=== PATIENT | male | born 1955 | race Caucasian/White ===

== ENCOUNTER 2023-04-11 13:07 | Emergency (ER) | payer MEDICARE, BC ==
[2023-04-11 13:12] VITALS: TEMP 98.4
[2023-04-11 13:39] LABS: Appearance,Urine Clear (Clear); Bilirubin,Urine Negative (Negative); Blood,Urine Large (Negative); Color,Urine Light Red; Glucose,Urine (UA) Negative (Negative); Ketones,Urine Negative (Negative); Leukocyte Esterase,Urine Small (Negative); Mucus,Urine Rare /hpf; Nitrite,Urine Negative (Negative); Protein,Urine 1+ (Negative); RBC,Urine >182 /hpf (0-5); Specific Gravity,Urine 1.018 (1.001-1.035); Urobilinogen,Urine <2.0 mg/dL (<2.0); WBC,Urine 2 /hpf (0-5)
--- NOTE | 2023-04-11 14:15 | ED ---
Male Urogenital HPI - General Source: patient, RN notes reviewed Mode of arrival: ambulatory Limitations: no limitations - History of Present Illness MD Complaint: other (hematuria) <Chaya Montiel - Last Filed: 04/11/23 14:13> <Eric Miranda - Last Filed: 04/11/23 17:37> - General Chief complaint: Urogenital Stated complaint: Blood in Urine Time Seen by Provider: 04/11/23 14:10 - History of Present Illness Initial comments: This is a 68-year-old male who presents to the emergency department for blood in his urine. States that this just started today. Denies any burning with urination or associated pain. He is not taking any blood thinners. (Chaya Montiel) 68-year-old male with no prior history of kidney stones or urological issues he is not on any blood thinners other than a baby aspirin every day who presents with complaints of painless hematuria which started yesterday with clots later on. He states his leg up this morning by pain colored. He states he did has some lower bilateral flank pain while in the waiting room today with this since passed he denies any fevers chills nausea vomiting sweats any trauma no history and family are of himself with kidney stones or kidney tumors. (Eric Miranda) - Related Data Previous Rx's Medication Instructions Recorded Cephalexin [Keflex] 500 mg PO Q6HR 1 Days #20 cap 04/11/23 Allergies Allergy/AdvReac Type Severity Reaction Status Date / Time No Known Allergies Allergy Verified 04/11/23 13:12 Review of Systems ROS Other: All systems not noted in ROS Statement are negative. <Chaya Montiel - Last Filed: 04/11/23 14:13> ROS Other: All systems not noted in ROS Statement are negative. <Eric Miranda - Last Filed: 04/11/23 17:37> ROS Statement: Those systems with pertinent positive or pertinent negative responses have been documented in the HPI. Past Medical History Past Medical History: Hyperlipidemia, Hypertension History of Any Multi-Drug Resistant Organisms: None Reported Past Surgical History: No Surgical Hx Reported Past Psychological History: No Psychological Hx Reported Smoking Status: Former smoker Past Alcohol Use History: None Reported Past Drug Use History: None Reported <Chaya Montiel - Last Filed: 04/11/23 14:13> General Exam Limitations: no limitations <BeechristieChaya - Last Filed: 04/11/23 14:13> General appearance: alert, in no apparent distress Head exam: Present: atraumatic, normocephalic, normal inspection Eye exam: Present: normal appearance, PERRL, EOMI. Absent: scleral icterus, conjunctival injection, periorbital swelling ENT exam: Present: normal exam, mucous membranes moist Neck exam: Present: normal inspection, full ROM. Absent: tenderness, meningismus, lymphadenopathy Respiratory exam: Present: normal lung sounds bilaterally. Absent: respiratory distress, wheezes, rales, rhonchi, stridor, chest wall tenderness Cardiovascular Exam: Present: regular rate, normal rhythm, normal heart sounds. Absent: systolic murmur, diastolic murmur, rubs, gallop, clicks GI/Abdominal exam: Present: soft, normal bowel sounds. Absent: distended, tenderness, guarding, rebound, rigid, bruit, pulsatile mass Rectal exam: Present: deferred exam: Present: normal inspection, other (No tenderness no masses) Extremities exam: Present: normal inspection, full ROM, normal capillary refill. Absent: tenderness, pedal edema, joint swelling, calf tenderness Back exam: Present: normal inspection, full ROM. Absent: tenderness, CVA tenderness (R), CVA tenderness (L) Neurological exam: Present: alert, oriented X3, CN II-XII intact Psychiatric exam: Present: normal affect, normal mood Skin exam: Present: warm, dry, intact, normal color. Absent: rash <Eric Miranda - Last Filed: 04/11/23 17:37> - General Exam Comments Initial Comments: Visual Physical Exam Vital signs reviewed General: Well-appearing, nontoxic, no acute distress. Head: Normocephalic, atraumatic Eyes: PERRLA, EOMI ENT: Airway patent Chest: Nonlabored breathing Skin: No visual rash, normal skin tone Neuro: Alert and oriented 3 Musculoskeletal: No gross abnormalities (Chaya Montiel) This is a well-developed well-nourished awake alert oriented 4 male HEENT exam normocephalic atraumatic PERRL EOMI conjunctivae clear neck supple full range of motion no stridor JVD or bruits chest clear on auscultation no tenderness palpation cardiac normal sinus rhythm no palpable tenderness again over this area. Abdomen soft nontender no guarding rebound masses or bruits back negative to tenderness to palpation. Extremities bilaterally present and symmetric no focal sensorimotor or vascular deficits cranial nerves II through XII grossly intact patient does present with no evidence of any psychiatric abnormalities. (Eric Miranda) Course Vital Signs 04/11/23 04/11/23 13:10 17:10 Temperature 98.4 F Pulse Rate 72 Respiratory 16 19 Rate Blood Pressure 142/88 115/84 O2 Sat by Pulse 96 Oximetry Medical Decision Making <Chaya Montiel - Last Filed: 04/11/23 14:13> - Lab Data Result diagrams: 04/11/23 16:06 04/11/23 16:06 <Eric Miranda - Last Filed: 04/11/23 17:37> - Medical Decision Making I performed the QuickNote portion of this chart. Signed Chaya Montiel PA-C. (Chaya Montiel) - Lab Data Lab Results 04/11/23 04/11/23 04/11/23 Range/Units 13:17 16:06 16:06 WBC 7.4 (3.8-10.6) k/uL RBC 4.34 (4.30-5.90) m/uL Hgb 15.4 (13.0-17.5) gm/dL Hct 43.4 (39.0-53.0) % MCV 100.0 (80.0-100.0) fL MCH 35.4 H (25.0-35.0) pg MCHC 35.4 (31.0-37.0) g/dL RDW 13.3 (11.5-15.5) % Plt Count 234 (150-450) k/uL MPV 8.3 Neutrophils % 63 % Lymphocytes % 24 % Monocytes % 6 % Eosinophils % 5 % Basophils % 1 % Neutrophils # 4.6 (1.3-7.7) k/uL Lymphocytes # 1.8 (1.0-4.8) k/uL Monocytes # 0.5 (0-1.0) k/uL Eosinophils # 0.3 (0-0.7) k/uL Basophils # 0.1 (0-0.2) k/uL PT 10.1 (9.0-12.0) sec INR 0.9 (<1.2) APTT 22.7 (22.0-30.0) sec Sodium (137-145) mmol/L Potassium (3.5-5.1) mmol/L Chloride (98-107) mmol/L Carbon Dioxide (22-30) mmol/L Anion Gap mmol/L BUN (9-20) mg/dL Creatinine (0.66-1.25) mg/dL Est GFR (CKD-EPI)AfAm (>60 ml/min/1.73 sqM) Est GFR (CKD-EPI)NonAf (>60 ml/min/1.73 sqM) Glucose (74-99) mg/dL Calcium (8.4-10.2) mg/dL Total Bilirubin (0.2-1.3) mg/dL AST (17-59) U/L ALT (4-49) U/L Alkaline Phosphatase (38-126) U/L Total Protein (6.3-8.2) g/dL Albumin (3.5-5.0) g/dL Urine Color Light Red Urine Appearance Clear (Clear) Urine pH 6.0 (5.0-8.0) Ur Specific [place] 1.018 (1.001-1.035) Urine Protein 1+ H (Negative) Urine Glucose (UA) Negative (Negative) Urine Ketones Negative (Negative) Urine Blood Large H (Negative) Urine Nitrite Negative (Negative) Urine Bilirubin Negative (Negative) Urine Urobilinogen <2.0 (<2.0) mg/dL Ur Leukocyte Esterase Small H (Negative) Urine RBC >182 H (0-5) /hpf Urine WBC 2 (0-5) /hpf Urine Mucus Rare H (None) /hpf 04/11/23 Range/Units 16:06 WBC (3.8-10.6) k/uL RBC (4.30-5.90) m/uL Hgb (13.0-17.5) gm/dL Hct (39.0-53.0) % MCV (80.0-100.0) fL MCH (25.0-35.0) pg MCHC (31.0-37.0) g/dL RDW (11.5-15.5) % Plt Count (150-450) k/uL MPV Neutrophils % % Lymphocytes % % Monocytes % % Eosinophils % % Basophils % % Neutrophils # (1.3-7.7) k/uL Lymphocytes # (1.0-4.8) k/uL Monocytes # (0-1.0) k/uL Eosinophils # (0-0.7) k/uL Basophils # (0-0.2) k/uL PT (9.0-12.0) sec INR (<1.2) APTT (22.0-30.0) sec Sodium 142 (137-145) mmol/L Potassium 4.6 (3.5-5.1) mmol/L Chloride 105 (98-107) mmol/L Carbon Dioxide 25 (22-30) mmol/L Anion Gap 12 mmol/L BUN 19 (9-20) mg/dL Creatinine 1.24 (0.66-1.25) mg/dL Est GFR (CKD-EPI)AfAm 70 (>60 ml/min/1.73 sqM) Est GFR (CKD-EPI)NonAf 60 (>60 ml/min/1.73 sqM) Glucose 103 H (74-99) mg/dL Calcium 10.5 H (8.4-10.2) mg/dL Total Bilirubin 0.9 (0.2-1.3) mg/dL AST 42 (17-59) U/L ALT 38 (4-49) U/L Alkaline Phosphatase 103 (38-126) U/L Total Protein 8.2 (6.3-8.2) g/dL Albumin 5.1 H (3.5-5.0) g/dL Urine Color Urine Appearance (Clear) Urine pH (5.0-8.0) Ur Specific [place] (1.001-1.035) Urine Protein (Negative) Urine Glucose (UA) (Negative) Urine Ketones (Negative) Urine Blood (Negative) Urine Nitrite (Negative) Urine Bilirubin (Negative) Urine Urobilinogen (<2.0) mg/dL Ur Leukocyte Esterase (Negative) Urine RBC (0-5) /hpf Urine WBC (0-5) /hpf Urine Mucus (None) /hpf - Radiology Data Interpreted by me: CT imaging interpreted by me evidence of a hyperdensity seen in the right lobe of the liver also evidence of cystic findings and the kidneys and spleen. Of note patient states he has had fatty liver and liver things before he believes this may be part of the old findings. He will follow-up with Dr. Cat he will be placed on a short course of antibiotics and encouraged to drink fluids. His pharmacies) weekends he will be given a paper prescription.Was pt. sent in by a medical professional or institution (, [facility], [facility] [employer], urgent care, hospital, or senior living...) When possible be specific @ -No Did you speak to anyone other than the patient for history (EMS, parent, family, police, friend...)? What history was obtained from this source @ -No Did you review nursing and triage notes (agree or disagree)? Why? @ -I reviewed and agree with nursing and triage notes Were old charts reviewed (outside hosp., previous admission, EMS record, old EKG, old radiological studies, urgent care reports/EKG's, senior living records)? Report findings @ -No old charts were reviewed Differential Diagnosis (chest pain, altered mental status, abdominal pain women, abdominal pain men, vaginal bleeding, weakness, fever, dyspnea, syncope, headac he, dizziness, GI bleed, back pain, seizure, CVA, palpatations, mental health, musculoskeletal)? @ -Hematuria EKG interpreted by me (3pts min.). @ -Not done X-rays interpreted by me (1pt min.). @ -None done CT interpreted by me (1pt min.). @ -Evidence of cystic kidneys cyst in the spleen and hyperdensity liver U/S interpreted by me (1pt. min.). @ -None done What testing was considered but not performed or refused? (CT, X-rays, U/S, labs)? Why? @ -None What meds were considered but not given or refused? Why? @ -None Did you discuss the management of the patient with other professionals (professionals i.e. [facility]INE Stoddard, [employer], lab, RT, psych nurse, forensic social worker, director systems, teacher, commercial account officer, lining caser)? Give summary @ -No Was smoking cessation discussed for >3mins.? @ -No Was critical care preformed (if so, how long)? @ -No Were there social determinants of health that impacted care today? How? (Homelessness, low income, unemployed, alcoholism, drug addiction, transportation, low edu. Level, literacy, decrease access to med. care, assisted, rehab)? @ -No Was there de-escalation of care discussed even if they declined (Discuss DNR or withdrawal of care, Hospice)? DNR status @ -No What co-morbidities impacted this encounter? (DM, HTN, Smoking, COPD, CAD, Cancer, CVA, ARF, Chemo, Hep., AIDS, mental health diagnosis, sleep apnea, mo rbid obesity)? @ -None Was patient admitted / discharged? Hospital course, mention meds given and route, prescriptions, significant lab abnormalities, going to OR and other pertinent info. @ -hospital course patient was discharged to follow-up with his family doctor for further evaluation and a consultation Undiagnosed new problem with uncertain prognosis? @ -Hematuria Drug Therapy requiring intensive monitoring for toxicity (Heparin, Nitro, Insulin, Cardizem)? @ -No Were any procedures done? @ -No Diagnosis/symptom? @ -Hematuria, cystitis Acute, or Chronic, or Acute on Chronic? @ -Acute Uncomplicated (without systemic symptoms) or Complicated (systemic symptoms)? @ -default Side effects of treatment? @ -No Exacerbation, Progression, or Severe Exacerbation? @ -No Poses a threat to life or bodily function? How? (Chest pain, [place], [place], pneumonia, PE, COPD, DKA, ARF, appy, cholecystitis, CVA, Diverticulitis, Homicidal, Suicidal, threat to staff... and all critical care pts) @ -No (Eric Miranda) Disposition <Chaya Montiel - Last Filed: 04/11/23 14:13> Is patient prescribed a controlled substance at d/c from ED?: No Decision Date: 04/11/23 Decision Time: 17:37 <Eric Miranda - Last Filed: 04/11/23 17:37> Clinical Impression: Cystitis, Hematuria Disposition: HOME SELF-CARE Condition: Good Instructions (If sedation given, give patient instructions): Urinary Tract Infection in Men (ED) Prescriptions: Cephalexin [Keflex] 500 mg PO Q6HR 1 Days #20 cap Referrals: Rachna Cat MD [Primary Care Provider] - 1-2 days
[2023-04-11 16:33] LABS: Basophils # (A) 0.1 k/uL (0-0.2); Basophils % (A) 1 %; Eosinophils # (A) 0.3 k/uL (0-0.7); Eosinophils % (A) 5 %; HCT 43.4 % (39.0-53.0); HGB 15.4 gm/dL (13.0-17.5); Lymphocytes # (A) 1.8 k/uL (1.0-4.8); Lymphocytes % (A) 24 %; MCH 35.4 pg (25.0-35.0); MCHC 35.4 g/dL (31.0-37.0); Mean Platelet Volume 8.3; Monocytes # (A) 0.5 k/uL (0-1.0); Monocytes % (A) 6 %; Neutrophils # (A) 4.6 k/uL (1.3-7.7); Neutrophils % (A) 63 %; Platelet Count 234 k/uL (150-450); RBC 4.34 m/uL (4.30-5.90); RDW 13.3 % (11.5-15.5); WBC 7.4 k/uL (3.8-10.6)
[2023-04-11 16:48] LABS: INR 0.9 (<1.2); Partial Thromboplastin Time 22.7 sec (22.0-30.0); Prothrombin Time 10.1 sec (9.0-12.0)
[2023-04-11 16:49] LABS: ALT 38 U/L (4-49); AST 42 U/L (17-59); African American GFR (CKD) 70 (>60 ml/min/1.73 sqM); Albumin 5.1 g/dL (3.5-5.0); Alkaline Phosphatase 103 U/L (38-126); Anion Gap 12 mmol/L; Blood Urea Nitrogen 19 mg/dL (9-20); Calcium 10.5 mg/dL (8.4-10.2); Carbon Dioxide 25 mmol/L (22-30); Chloride 105 mmol/L (98-107); Glucose 103 mg/dL (74-99); Non-African American GFR(CKD) 60 (>60 ml/min/1.73 sqM); Potassium 4.6 mmol/L (3.5-5.1); Sodium 142 mmol/L (137-145); Total Bilirubin 0.9 mg/dL (0.2-1.3); Total Protein 8.2 g/dL (6.3-8.2)
--- NOTE | 2023-04-11 17:10 | CT ---
EXAMINATION TYPE: CT abdomen pelvis wo con DATE OF EXAM: 04/11/2023 COMPARISON: None INDICATION: Gross hematuria. DLP: 2072 mGycm, Automated exposure control for dose reduction was used. CONTRAST: 0 mL of Isovue 300. Study performed without Oral Contrast TECHNIQUE: Axial images were obtained from above the diaphragm to the pubic rami in the axial plane a t 5 mm thick sections. Reconstructed images are reviewed on the computer in the coronal plane. FINDINGS: Limited CT sections are obtained the lung bases. The lung bases are clear. CT ABDOMEN: Liver: There is a 9 point to by 7.4 x 8.3 cm ill-defined hypodensity within the right lobe liver. Roma jagdish metastatic disease should be considered. Spleen: There is a 1.4 cm hypodensity within the lateral spleen. Pancreas: Normal Adrenal glands: Normal Gallbladder: Normal Kidneys: No masses are evident. No hydronephrosis is present. There is an 8.1 cm cyst inferior pole left kidney. Anterior left renal cyst is present measuring 6.7 cm. Superior pole right renal cyst me asures 2.6 cm. No renal stones are evident. Some malrotation of the left kidney is present. Aorta: Vascular calcification is within the aorta. Inferior vena cava: Normal. CT PELVIS: Periumbilical hernia containing mesenteric fat without loops of bowel involvement is prese nt. Loops of bowel within the abdomen and pelvis are normal. Diverticular changes are within the sigmoid colon. No adjacent inflammatory changes to suggest acute diverticulitis is evident this study with out oral contrast limiting bowel evaluation Appendix: Normal as visualized. Urinary bladder: There is an unusual curvilinear low density along the internal nondependent urinary bladder wall. This could suggest some underlying mass. Lack of intravenous contrast limits evaluation of the pelvis. Consider ultrasound for additional evaluation. Additional workup is recommended. Cyst itis could be considered. Genitourinary structures: Prostate is normal Osseous structures: No suspicious lytic or sclerotic lesions. IMPRESSIONS: 1. Other appears to be a filling defect within the urinary bladder. Differential diagnosis could inc lude cystitis Recommend ultrasound for additional workup. 2. Diverticulosis without acute diverticulitis. 3. Large ill-defined hypodensity within the liver. Primary metastatic disease should be considered. A dditional workup is recommended. 4. Bilateral renal cysts
[2023-04-11] MEDS ORDERED: CEPHALEXIN 500 MG CAP PO STA (17:32)
[2023-04-11 18:09] VITALS: BP 116/99; PULSE 68; RESP 20
== END 2023-04-11 18:09 | disposition home or self-care (01) ==
LOC: EDBD → EC 13:07
DX: N30.91 Cystitis, unspecified with hematuria (principal); N28.1 Cyst of kidney, acquired; D73.4 Cyst of spleen; K76.89 Other specified diseases of liver; I10 Essential (primary) hypertension; Z87.891 Personal history of nicotine dependence
CPT/HCPCS: 36415; 74176; 80053; 81001; 85025; 85610; 85730; 99284